=== PATIENT | male | born 1995 | race Caucasian/White ===

== ENCOUNTER 2025-02-06 20:15 | Emergency (ER) | payer MEDICAID ==
[~2025-02-06] VITALS: Ht 182.9 cm; Wt 80.9 kg
[2025-02-06 22:45] VITALS: BP 121/76; PULSE 66; RESP 18; TEMP 37; O2SAT 99
== END 2025-02-06 22:48 | disposition home or self-care (01) ==
LOC: ER 20:15
DX: Z20.3 Contact with and (suspected) exposure to rabies (principal); Z23 Encounter for immunization
CPT/HCPCS: 99282